=== PATIENT | male | born 1945 | race Caucasian/White ===

== ENCOUNTER 2016-07-02 05:59 | Inpatient (IN) | payer OTHER ==
[2016-07-02] MEDS ORDERED: CEFAZOLIN 2 GM/DEXTR 100 ML IV ONE (06:00)
[2016-07-02] MEDS ORDERED: FAMOTIDINE 20 MG TAB PO ONE (06:00)
[2016-07-02] MEDS ORDERED: DEXAMETHASONE 4 MG/ML VIAL IVP ONE (06:00)
[2016-07-02] MEDS ORDERED: ACETAMINOPHEN 325 MG TAB PO ONE (06:00)
[2016-07-02] MEDS ORDERED: CHLORHEXIDINE GLUC HIBICLENS 118 ML BTL TP ONE (06:00)
[2016-07-02] MEDS ORDERED: ROPI/epiNEPH/KETOROLAC JOINT COCKTAIL IU ONE (06:00)
[2016-07-02] MEDS ORDERED: TRANEXAMIC ACID 3,000 MG in NS 50 ML IRR ONE (06:00)
[2016-07-02] MEDS ORDERED: LIDOCAINE 1% 5 ML SDV ONE (06:11)
[2016-07-02] MEDS ORDERED: LIDOCAINE 1% 5 ML SDV ID PRN (06:31)
[2016-07-02] MEDS ORDERED: LR 1,000 ML IV ONE (06:31)
[2016-07-02] MEDS ORDERED: TRANEXAMIC ACID 3,000 MG/50 ML BAG IRR ONE (06:33)
[2016-07-02] MEDS ORDERED: SKIN ADHESIVE (DERMABOND) 1 EACH TP ONE (06:33)
[2016-07-02] MEDS ORDERED: VANCOMYCIN 1 GM VIAL IV ONE (06:34)
[2016-07-02] MEDS ORDERED: MIDAZOLAM 2 MG/2 ML VIAL ONE (07:02)
[2016-07-02] MEDS ORDERED: fentaNYL 100 MCG/2 ML INJ ONE (07:04)
[2016-07-02] MEDS ORDERED: PROPOFOL 200 MG/20 ML VIAL ONE ×2 (07:04→07:25)
[2016-07-02] MEDS ORDERED: PHENYLEPHRINE HCL 100 MCG/ML SYR ONE (07:25)
[2016-07-02] MEDS ORDERED: METOCLOPRAMIDE 10 MG/2 ML VIAL IVP PRN (07:30)
[2016-07-02] MEDS ORDERED: DIPHENOXYLATE/ATROPINE LOMOTIL 1 TAB PO PRN (07:30)
[2016-07-02] MEDS ORDERED: PROMETHAZINE HCL 25 MG/ML INJ IVP PRN (07:30)
[2016-07-02] MEDS ORDERED: POLYETHYLENE GLYCOL 3350 17 GM PKT PO PRN (07:30)
[2016-07-02] MEDS ORDERED: CYCLOBENZAPRINE 10 MG TAB PO PRN (07:30)
[2016-07-02] MEDS ORDERED: diphenhydrAMINE 25 MG CAP PO PRN (07:30)
[2016-07-02] MEDS ORDERED: PHARMACY PAIN CONSULT 1 EA MISC PRN (07:30)
[2016-07-02] MEDS ORDERED: TEMAZEPAM 15 MG CAP PO PRN (07:30)
[2016-07-02] MEDS ORDERED: ONDANSETRON 4 MG/2 ML VIAL IVP PRN (07:30)
[2016-07-02] MEDS ORDERED: BISACODYL 10 MG SUPP PR PRN (07:30)
[2016-07-02] MEDS ORDERED: LR 1,000 ML IV SCH (07:30)
[2016-07-02] MEDS ORDERED: MAGNESIUM HYDROXIDE 30 ML UDCUP PO PRN (07:30)
[2016-07-02] MEDS ORDERED: ONDANSETRON DISINTEGRATING 4 MG TAB PO PRN (07:30)
[2016-07-02] MEDS ORDERED: PROMETHAZINE HCL 25 MG SUPPR PR PRN (07:30)
[2016-07-02] MEDS ORDERED: LACTULOSE 20 GM/30 ML UDCUP PO PRN (07:30)
[2016-07-02] MEDS ORDERED: ONDANSETRON 4 MG/2 ML VIAL ONE (07:44)
[2016-07-02] MEDS ORDERED: ROPIVACAINE HCL 150 MG/30 ML INJ ONE (08:23)
--- NOTE | 2016-07-02 08:33 | POSTOPPROG ---
Post Op Note Date of Operation: 07/02/16 Surgeon: Oseas Bingham [employer] Developer: junior bingham Anesthesiologist: dr. stock Anesthesia: Spinal, Other (Specify) (adductor canal block) Pre-op Diagnosis: right knee OA Post-op Diagnosis: same Indication: right knee pain due to OA that failed conservative measures Procedure: R TKA Findings: severe knee OA Inf/Abcess present in the surg proc area at time of surgery?: No EBL: 50-100
[2016-07-02] MEDS: PANTOPRAZOLE SODIUM 40 MG TAB PO SCH (09:57)
[2016-07-02] MEDS: SENNOSIDES/DOCUSATE SODIUM TAB PO SCH ×2 (09:57→20:19)
[2016-07-02] MEDS: oxyCODONE IR 5 MG TAB PO PRN ×2 (10:28→20:19)
[2016-07-02] MEDS: ACETAMINOPHEN 325 MG TAB PO SCH ×2 (12:16→20:18)
[2016-07-02] MEDS: ceFAZolin 2 GM in D5W 100 ML IV SCH ×2 (13:37→21:21)
[2016-07-02] MEDS ORDERED: ceFAZolin 2 GM/DEXTROSE 100 ML IV SCH (14:00)
--- NOTE | 2016-07-02 17:13 | GOP ---
DATE OF OPERATION: 07/02/2016 SURGEON: Anthony Anne MD [employer] REP: ANTOLIN Ga. ANESTHESIA: Spinal. PREOPERATIVE DIAGNOSIS: Right knee osteoarthritis. POSTOPERATIVE DIAGNOSIS: Right knee osteoarthritis. PROCEDURE PERFORMED: Right total knee arthroplasty. FINDINGS/PATHOLOGY: Severe medial and patellofemoral osteoarthritis. ESTIMATED BLOOD LOSS: 30 cc. INDICATIONS: This is a 70-year-old male with severe and progressive pain and deformity of the right knee unresponsive to conservative care. Risks and benefits of the surgical intervention were explained in detail. DESCRIPTION OF PROCEDURE: The patient was brought to the operative room and placed on the table in the supine position. Spinal anesthesia was induced without difficulty. A pneumatic tourniquet was applied about the right proximal thigh, and the leg was prepped and draped in a sterile fashion. The leg lincoln was applied. After exsanguination by elevation the tourniquet was inflated to 275 mm of mercury. Incision was made anterior medial from the tibial tuberosity to a point 2 cm proximal to the superior pole of the patella. Medial parapatellar arthrotomy was carried out from the superior pole of the patella and posteriorly in line with the fibers of the Type II VMO. The medial collateral ligament was elevated and the infrapatellar fat pad was resected. The patella was everted and the articular surface was excised. A 35 mm patellar button was placed. The distal femoral guide hole was drilled and the 6 degree alignment tabitha was placed. An 8 mm distal femoral cut was made without difficulty. Attention was turned to the tibia and a standard 9 mm cut based on the lateral tibial condyle was performed. The tibial articular surface was excised without difficulty. Attention was turned back to the femur and a size 5 Triathlon femoral cutting block was positioned. Anterior, posterior, and chamfer cuts were made, followed by the intercondylar box cut. The knee was extended and the remnants of the medial and lateral meniscus were excised. The posterior capsule was injected with ropivacaine, epinephrine and Toradol. A size 5 MIS mini-keel tibial tray was positioned. Trial reduction was then carried out. There was excellent range of motion, alignment, and stability using the 11 mm polyethylene. All trials were then removed. The joint was thoroughly irrigated and carefully dried. Two packages of cement and 2 grams of vancomycin were mixed in the vacuum mixer and placed on the fixation surfaces of all surfaces of the components. The components were implanted and all excess cement was thoroughly removed. The permanent 11 mm polyethylene X3 was placed without difficulty. The tourniquet was deflated and all bleeders were coagulated. The wound was thoroughly irrigated and closed using interrupted sutures of 2-0 Vicryl for the joint capsule. The subcu was closed with 3-0 Vicryl and the skin with 4-0 Monocryl. Dermabond and Steri-Strips were applied followed by a compressive dressing. The patient was then moved from the operating room to the recovery room in good condition, having tolerated the procedure well. TOURNIQUET: 275 mmHg. /[id number]/MODL MTDD
[2016-07-02] MEDS: ASPIRIN 325 MG TAB PO SCH (20:18)
[2016-07-02] MEDS: FAMOTIDINE 20 MG TAB PO SCH (20:19)
[2016-07-03] MEDS: ACETAMINOPHEN 325 MG TAB PO SCH ×2 (00:49→05:05)
[2016-07-03 04:17] VITALS: PULSE 66
[2016-07-03 05:34] LABS: HEMATOCRIT 41.7 % (40.0-51.0); HEMOGLOBIN 13.8 g/dL (13.7-17.5)
[2016-07-03] MEDS ORDERED: LEVOTHYROXINE 75 MCG TAB PO SCH (06:00)
[2016-07-03 07:40] VITALS: RESP 20; TEMP 98.2; O2SAT 97
[2016-07-03] MEDS ORDERED: LISINOPRIL 10 MG TAB PO SCH (09:00)
[2016-07-03] MEDS ORDERED: NON-FORMULARY NEW DRUG (Lansoprazole [Prevacid] 15 MG) PO SCH (09:00)
[2016-07-03] MEDS: ASPIRIN 325 MG TAB PO SCH (09:31)
[2016-07-03] MEDS: PANTOPRAZOLE SODIUM 40 MG TAB PO SCH (09:33)
[2016-07-03] MEDS: FAMOTIDINE 20 MG TAB PO SCH (09:33)
[2016-07-03] MEDS: SENNOSIDES/DOCUSATE SODIUM TAB PO SCH (09:33)
[2016-07-03 09:39] VITALS: BP 127/85
== END 2016-07-03 11:47 | disposition home or self-care (01) | DRG 470 ==
LOC: F3N 05:59
PROVIDERS: ADMIT Orthopaedic Surgery; ATTEND Orthopaedic Surgery
PROC: 0SRC0J9 Replacement of Right Knee Joint with Synthetic Substitute, Cemented, Open Approach (ICD-10-PCS; principal; 2016-07-02 07:15)
DX: M17.11 Unilateral primary osteoarthritis, right knee (principal); E03.9 Hypothyroidism, unspecified; K21.9 Gastro-esophageal reflux disease without esophagitis
CPT/HCPCS: 97110-GP; 97116-GP; 97161-GP; 97165-GO; C1713; G8978-GP-CI; G8978-GP-CJ; G8979-GP-CI; G8980-GP-CI; J0171; J0690; J1100; J1885; J2250; J2370; J2405; J2704; J2795; J3010; J3370